=== PATIENT | female | born 1960 | race Asian ===

== ENCOUNTER 2019-10-11 07:26 | Day surgery (SDC) | payer OTHER ==
[~2019-10-11] VITALS: Ht 160 cm; Wt 58.0 kg
[2019-10-11 08:12] VITALS: BP 138/74
[2019-10-11 12:39] VITALS: BP 131/78
== END 2019-10-11 11:15 | disposition home or self-care (01) ==
LOC: DS 07:26 → OR 10:00 → GI 10:00 → DS 11:15
DX: Z12.11 Encounter for screening for malignant neoplasm of colon (principal); E11.9 Type 2 diabetes mellitus without complications; K64.8 Other hemorrhoids; Z90.710 Acquired absence of both cervix and uterus; Z98.890 Other specified postprocedural states; Z79.84 Long term (current) use of oral hypoglycemic drugs; Z79.899 Other long term (current) drug therapy; Z98.891 History of uterine scar from previous surgery
CPT/HCPCS: 45378; J1200; J1610; J2250; J2310; J3010; J3490